=== PATIENT | female | born 1980 | race Two or more races ===

== ENCOUNTER 2018-08-15 23:16 | Emergency (ER) | payer OTHER ==
[2018-08-16] MEDS ORDERED: KETOROLAC TROMETHAMINE 60 MG/2 ML SDV IM ONE (01:43)
[2018-08-16] MEDS ORDERED: LIDOCAINE 5% (700 MG) TRANSDERMAL ADH..PATCH TP ONE (01:43)
[2018-08-16] MEDS ORDERED: MORPHINE SULFATE 10 MG/ML INJ IV ONE (03:06)
[2018-08-16] MEDS ORDERED: DIAZEPAM INJ 10 MG/2 ML DISP.SYRIN IV ONE (03:07)
--- NOTE | 2018-08-16 03:48 | RADIOLOGY REPORT (SQ) ---
EXAM DESCRIPTION: [facility]: CT LUMBAR SPINE WITHOUT IV CONTRAST CLINICAL HISTORY: 38 years Female; Lumbar pain with radiation down right leg TECHNIQUE: Noncontrast lumbar spine CT with sagittal and coronal reconstructions. All CT scans at this facility use dose modulation, iterative reconstruction, and/or weight based dosing when appropriate to reduce radiation dose to as low as reasonably achievable. COMPARISON: None. FINDINGS: Alignment is anatomic. L4-L5: Disc bulging with right foraminal component abuts the right L4 root as it exits the foramen. L5-S1: Disc bulging, potentially affecting the S1 roots. There is no acute fracture. Vertebral heights are preserved. No epidural hematoma. IMPRESSION: 1. No acute fracture or subluxation of the lumbar spine. 2. Right foraminal disc bulging at L4-L5 and broad posterior disc bulging at L5-S1, potentially affecting right L4 and/or bilateral S1 roots. MRI of the lumbar spine without contrast would provide better evaluation.
--- NOTE | 2018-08-16 04:40 | ER Document Report ---
ED General - General Mode of Arrival: Ambulatory Information source: Patient TRAVEL OUTSIDE OF THE [place] IN LAST 30 DAYS: No - General Chief Complaint: Ankle Pain Stated Complaint: RIGHT LEG AND ANKLE PAIN Time Seen by Provider: 08/16/18 01:43 Primary Care Provider: EAN POZO MD [Primary Care Provider] - Follow up as needed Notes: Patient is an otherwise healthy 38-year-old female presented to the emergency department with 6-month history of low back pain with radiation down into her right buttocks and back of her right leg. Patient reports she believes this initially happened at work, states she has been seeing a chiropractor and states that they have diagnosed her with a bulging just based on plain x-ray films. Patient states she has not had a CT or MRI of the lumbar spine performed. Patient reports her symptoms have been worsening, states that occasionally her leg gives out on her and states that she has severe pain as well as tingling and weakness to the leg. She denies any numbness. She did walking to the emergency department with a steady gait today. Denies any recent illness or fever. Denies any loss of bowel or bladder, denies any urinary retention or saddle anesthesia. (JESSICA LESLIE) - Related Data Allergies/Adverse Reactions: No Known Allergies Allergy (Unverified 08/15/18 23:19) Past Medical History - General Information source: Patient - Social History Smoking Status: Never Smoker Chew tobacco use (# tins/day): No Frequency of alcohol use: None Family History: Reviewed & Not Pertinent Patient has suicidal ideation: No Patient has homicidal ideation: No - Medical History Medical History: Negative Renal/ Medical History: Denies: Hx Peritoneal Dialysis Surgical Hx: Negative - Immunizations Immunizations up to date: Yes Review of Systems - Review of Systems Constitutional: No symptoms reported EENT: No symptoms reported Cardiovascular: No symptoms reported Respiratory: No symptoms reported Gastrointestinal: No symptoms reported Genitourinary: No symptoms reported Female Genitourinary: No symptoms reported Musculoskeletal: See HPI Skin: No symptoms reported Hematologic/Lymphatic: No symptoms reported Neurological/Psychological: No symptoms reported Physical Exam - Vital signs Vitals: Temp Pulse Resp BP Pulse Ox 98.7 F 83 16 128/81 H 100 08/15/18 23:37 08/15/18 23:37 08/15/18 23:37 08/15/18 23:37 08/15/18 23:37 - Notes Notes: PHYSICAL EXAMINATION: GENERAL: Well-appearing, well-nourished and in no acute distress. HEAD: Atraumatic, normocephalic. EYES: Pupils equal round and reactive to light, extraocular movements intact, conjunctiva are normal. ENT: Nares patent, oropharynx clear without exudates. Moist mucous membranes. NECK: Normal range of motion, supple without lymphadenopathy LUNGS: Breath sounds clear to auscultation bilaterally and equal. No wheezes rales or rhonchi. HEART: Regular rate and rhythm without murmurs ABDOMEN: Soft, nontender, nondistended abdomen. No guarding, no rebound. No masses appreciated. Female : deferred Musculoskeletal: Normal range of motion, no pitting or edema. No cyanosis. Vertebral tenderness noted in the lumbar area, no step-off or deformity noted. Significant tenderness to palpation to right lumbar paraspinous muscles extending down into the right buttocks. NEUROLOGICAL: Cranial nerves grossly intact. Normal speech. Normal sensory, motor exams PSYCH: Normal mood, normal affect. SKIN: Warm, Dry, normal turgor, no rashes or lesions noted. (JESSICA LESLIE) Course - Re-evaluation Re-evalutation: CT of the lumbar spine shows no acute fracture or subluxation. There is right- sided foraminal disc bulging at L4-L5 and broad posterior disc bulging at L5-S1. Potentially affecting right L4 and/or bilateral S1 roots. MRI recommended. This was discussed with the patient who would like to stay until MRI is available in the morning. Patient will be treated with additional pain medication. Patient was given morphine and Valium which did reduce her pain down to a 3/5 from a 5/5. Bedside handoff given to Alec MILLER. (JESSICA LESLIE) 08/16/18 10:49 Accepted patient from Jessica Leslie NP by the bedside. MRI lumbar spine without contrast complete results state L4-L5 shows a broad right lateral protrusion without exerting mass-effect on the L4 nerve root. L5-S1 there is a broad central protrusion that appears to exert mass-effect on the right S1 nerve root. At this time there are no red flags as patient is able to urinate, denies saddle paresthesia, denies fever, denies bowel incontinence. I have given her the MRI disc and a copy of the report. She is stable for discharge. (ERIKA COOMBS) - Vital Signs Vital signs: Temp Pulse Resp BP Pulse Ox 98.7 F 83 16 128/81 H 100 08/15/18 23:37 08/15/18 23:37 08/15/18 23:37 08/15/18 23:37 08/15/18 23:37 Discharge - Discharge Clinical Impression: Lower back pain Qualifiers: Chronicity: acute Back pain laterality: right Sciatica presence: with sciatica Sciatica laterality: sciatica of right side Qualified Code(s): M54.41 - Lumbago with sciatica, right side Right ankle pain Qualifiers: Chronicity: acute Qualified Code(s): M25.571 - Pain in right ankle and joints of right foot Condition: Good Disposition: HOME, SELF-CARE Additional Instructions: You were seen in the emergency department today for right ankle pain and right lower back pain. An MRI was done which did show that you do have bulging disks at L4-L5 and L5-S1. There were no red flags on physical exam or any symptoms that you explained so you are safe to go home. I have given you a short course of pain medication to help bridge you until you can see her primary doctor. I have also given you a disc of the MRI with the written report. Please take this to your primary doctor so you can get follow-up care. If you do develop fever, urinary retention, bowel incontinence, paralysis or worsening numbness and paresthesias in either of your legs, numbness in your "sit bones", please immediately return to the emergency department as this is a sign of a serious spinal cord injury Referrals: EAN POZO MD [Primary Care Provider] - Follow up as needed
[2018-08-16] MEDS ORDERED: DIAZEPAM 5 MG TABLET PO ONE (06:49)
[2018-08-16] MEDS ORDERED: OXYCODONE-ACETAMINOPHEN 5-325 MG TABLET PO ONE (06:49)
--- NOTE | 2018-08-16 08:48 | RADIOLOGY REPORT (SQ) ---
EXAM DESCRIPTION: MRI LUMBAR SPINE WITHOUT COMPLETED DATE/TIME: 08/16/2018 8:29 am REASON FOR STUDY: lumbar back pain, right leg numbness, tingling COMPARISON: Lumbar spine from earlier on same date. TECHNIQUE: Sagittal and Axial imaging includes T1, T2, STIR and gradient echo sequences. Coronal T2/ HASTE imaging. LIMITATIONS: None. FINDINGS: VISUALIZED UPPER ABDOMEN: Limited evaluation. No acute or suspicious findings suggested. SEGMENTATION: No transitional anatomy. The lowest well-developed disc space is labeled L5-S1. ALIGNMENT: Anatomic. VERTEBRAE: Intact. BONE MARROW: Normal. No marrow replacement or reactive changes. DISC SIGNAL: Mild signal loss at the L4-5 disc. Signal loss and disc hernia at L5-S1, see individual levels below. POSTERIOR ELEMENTS: Generally intact. No pars defect evident. HARDWARE: None in the spine. CORD AND CONUS: Normal in size and signal intensity. Conus at the appropriate level. SOFT TISSUES: No aortic aneurysm seen. No bulky retroperitoneal adenopathy or mass. No paraspinal mas s or fluid. L1-L2: No significant spinal stenosis or exit foraminal stenosis. L2-L3: No significant spinal stenosis or exit foraminal stenosis. L3-L4: No significant spinal stenosis or exit foraminal stenosis. L4-L5: Broad right lateral protrusion contacts but does not appear to exert mass effect on the L4 ner ve root. Mild facet overgrowth. No significant central narrowing. L5-S1: Broad central protrusion contacts the left S1 nerve root and appears to exert mass effect on t he right S1 nerve root particularly. Patent neural foramina. LOWER THORACIC: Incompletely imaged. No stenosis seen. SACRUM: Visualized upper sacrum intact. OTHER: No other significant findings. IMPRESSION: 1. L4-5 and L5-S1 disc hernias as above. TECHNICAL DOCUMENTATION: JOB ID: [id number] [employer]- All Rights Reserved Reading location - IP/workstation name: [email or web address]
[2018-08-16 11:36] VITALS: BP 126/86
== END 2018-08-16 11:35 | disposition home or self-care (01) ==
LOC: ER 23:16
DX: M54.41 Lumbago with sciatica, right side (principal); M25.571 Pain in right ankle and joints of right foot
CPT/HCPCS: 99283; 96372; 96374; 96375; 72148; 72131; J3360; J1885; J2270

== ENCOUNTER 2018-08-22 16:54 | Emergency (ER) | payer OTHER ==
[2018-08-22] MEDS ORDERED: HYDROMORPHONE HCL INJ/PF 2 MG/ML AMPULE IV PRN (18:53)
[2018-08-22] MEDS ORDERED: KETOROLAC TROMETHAMINE INJ/PF 30 MG/1 ML SDV IV ONE (18:53)
[2018-08-22] MEDS ORDERED: LIDOCAINE 5% (700 MG) TRANSDERMAL ADH..PATCH TP ONE (18:53)
--- NOTE | 2018-08-22 18:54 | ER Document Report ---
ED General - General Chief Complaint: Back Pain Stated Complaint: BACK AND RIGHT LEG PAIN Time Seen by Provider: 08/22/18 18:38 Primary Care Provider: EAN POZO MD [Primary Care Provider] - Follow up as needed Notes: Patient is a 38-year-old female with a past medical history of chronic low back pain, currently follows in pain management, presents from work with acute on chronic low back pain. The patient does have chronic low back pain, takes morphine and naproxen on a daily basis for control. States that she was standing at work for prolonged period of time and began to have progression of her low back pain which she describes as a severe, throbbing, aching pain to her low back that shoots down her bilateral extremities particular towards the right. She reports standing or bending over worsens the pain. She did receive fentanyl by EMS with some mild improvement of her pain. Was seen in the emergency department 1 week ago for similar symptoms and had an MRI of her low back at that time which did not show any critical findings that showed multiple herniated disks. Has not yet followed up with her primary doctor regarding those MRI findings. She denies any bowel or bladder incontinence, urinary loss of sensation, inability to ambulate, or focal weakness. TRAVEL OUTSIDE OF THE [place] IN LAST 30 DAYS: No - Related Data Allergies/Adverse Reactions: No Known Allergies Allergy (Unverified 08/15/18 23:19) Past Medical History - General Information source: Patient - Social History Smoking Status: Never Smoker Frequency of alcohol use: None Drug Abuse: None Lives with: Friend Family History: Reviewed & Not Pertinent Patient has suicidal ideation: No Patient has homicidal ideation: No Renal/ Medical History: Denies: Hx Peritoneal Dialysis - Immunizations Immunizations up to date: Yes Review of Systems - Review of Systems Notes: Constitutional: Negative for fever. HENT: Negative for sore throat. Eyes: Negative for visual changes. Cardiovascular: Negative for chest pain. Respiratory: Negative for shortness of breath. Gastrointestinal: Negative for abdominal pain, vomiting or diarrhea. Genitourinary: Negative for dysuria. Musculoskeletal: Positive for low back pain Skin: Negative for rash. Neurological: Negative for headaches, weakness or numbness. 10 point ROS negative except as marked above and in HPI. Physical Exam - Vital signs Vitals: Temp Pulse Resp BP Pulse Ox 97.8 F 95 18 141/82 H 100 08/22/18 17:00 08/22/18 17:00 08/22/18 17:00 08/22/18 17:00 08/22/18 17:00 Interpretation: Hypertensive Notes: PHYSICAL EXAMINATION: GENERAL: Appears uncomfortable, moving around rapidly in bed HEAD: Atraumatic, normocephalic. EYES: Pupils equal round and reactive to light, extraocular movements intact, sclera anicteric, conjunctiva are normal. ENT: nares patent, oropharynx clear without exudates. Moist mucous membranes. NECK: Normal range of motion, supple without lymphadenopathy LUNGS: Breath sounds clear to auscultation bilaterally and equal. No wheezes rales or rhonchi. HEART: Regular rate and rhythm without murmurs ABDOMEN: Soft, nontender, normoactive bowel sounds. No guarding, no rebound. No masses appreciated. EXTREMITIES: Normal range of motion, no pitting or edema. No cyanosis. Back: No midline spinal tenderness, step-offs or deformities NEUROLOGICAL: 5 out of 5 strength both distally and proximally bilateral lower extremities. 2+ patellar reflexes bilaterally. No clonus. Sensation grossly intact in the bilateral lower extremities. Patient is able to ambulate without difficulty. PSYCH: Anxious, tearful SKIN: Warm, Dry, normal turgor, no rashes or lesions noted. Course - Re-evaluation Re-evalutation: 08/22/18 18:54 Presentation of a well appearing patient complaining of acute on chronic back pain. No rapid progression of symptoms, systemic symptoms including fevers, chills, weight loss, history of recent bacterial infection, bilateral symptoms, numbness, weakness, difficulty walking, urinary retention or bowel incontinence, personal history of cancer, immunosuppression, diabetes, known AAA, or history of IV drug use. Exam is without point tenderness over vertebral bodies, pulsatile abdominal mass, and patient has symmetric and intact lower extremity strength, sensation, and reflexes without clonus. 2+ symmetric medial malleolar and dorsalis pedis pulses. Patient had an MRI of her lumbar spine 1 week ago that showed bulging disks at multiple levels without any cord compression Based on history and physical, I have a very low suspicion of a concerning etiology of pain including epidural compression syndrome, spinal infection, transverse myelitis, malignancy, abdominal aortic aneurysm, renal colic, acute lower extremity claudication, neurogenic claudication, ankylosing spondylitis, or other intra-abdominal process. I do not believe repeat MRI imaging is appropriate at this point as imaging was completed less than 1 week ago for similar presentation. Patient's friend at the bedside does relate that the patient has not followed instructions from previous discharge and continues to physically exert herself regularly and is not taking rest as appropriate. Will provide analgesia and reassess the patient. - Vital Signs Vital signs: Temp Pulse Resp BP Pulse Ox 97.8 F 95 18 141/82 H 100 08/22/18 17:00 08/22/18 17:00 08/22/18 17:00 08/22/18 17:08/22/18 17:00 Discharge - Discharge Clinical Impression: Acute exacerbation of chronic low back pain Condition: Good Disposition: HOME, SELF-CARE Additional Instructions: You have been seen in the Emergency Department (ED) today for back pain. Your workup and exam have not shown any acute abnormalities and you are likely having ongoing pain related to herniated disks that were identified on the MRI from earlier this month. 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 You should also purchase a local lidocaine cream such as "aspercreme with lidocaine" and use per bottle instructions to the affected area. Apply heat to the area as often as you are able. Continue to keep active and avoid prolonged periods of bed rest. Please follow up with your doctor as soon as possible regarding today's ED visit and your back pain. Return to the ED for worsening back pain, fever, weakness or numbness of either leg, or if you develop either (1) an inability to urinate or have bowel movements, or (2) loss of your ability to control your bathroom functions (if you start having "accidents"), or if you develop other new symptoms that concern you.concern you. Referrals: EAN POZO MD [Primary Care Provider] - Follow up as needed
[2018-08-22 20:09] VITALS: BP 113/63
[2018-08-22] MEDS ORDERED: ONDANSETRON HCL INJ/PF 4 MG/2 ML SDV IV ONE (20:10)
== END 2018-08-22 20:39 | disposition home or self-care (01) ==
LOC: ER 16:54
DX: G89.29 Other chronic pain (principal); M54.5 Low back pain
CPT/HCPCS: 99283; 96374; 96375; J1885; J1170; J2405

== ENCOUNTER 2018-08-24 15:20 | Emergency (ER) | payer OTHER ==
[2018-08-24] MEDS ORDERED: OXYCODONE-ACETAMINOPHEN 5-325 MG TABLET PO ONE (16:22)
[2018-08-24] MEDS ORDERED: KETOROLAC TROMETHAMINE 60 MG/2 ML SDV IM ONE (16:22)
--- NOTE | 2018-08-24 16:24 | ER Document Report ---
ED Medical Screen (RME) - General Chief Complaint: Urinary Retention Stated Complaint: BACK PAIN Time Seen by Provider: 08/24/18 16:21 Primary Care Provider: EAN POZO MD [Primary Care Provider] - Follow up as needed Notes: 38-year-old female coming in today with back pain that radiates down the right leg. Been seen here before. Had an MRI. Was prescribed morphine for pain. She has not seen a back specialist. Pain is worse now. Now having difficulty moving her bowels. A bowel movement for a week. Also feels the urge to urinate and the urinate. She does not have any overflow incontinence. She has not lost control of her bowels. No fevers or chills or flank pain. No nausea or vomiting. I have treated and performed a rapid initial assessment of this patient. A comprehensive ED assessment and evaluation of the patient, analysis of test results and completion of medical decision making process will be conducted by additional ED providers. PHYSICAL EXAMINATION: GENERAL: Walks with a limp favoring the right lower extremity. Appears to be in discomfort. ABDOMEN: Soft, nondistended abdomen. No guarding, no rebound. Normal bowel sounds present. No CVA tenderness bilaterally. + mild epigastric tenderness (cannot elicit thorough abd exam w/o table, however). Extremities: No cyanosis, clubbing, or edema b/l. NEUROLOGICAL: Normal speech, normal gait. PSYCH: Normal mood, normal affect. TRAVEL OUTSIDE OF THE [place] IN LAST 30 DAYS: No - Related Data Allergies/Adverse Reactions: No Known Allergies Allergy (Verified 08/24/18 15:22) Past Medical History - Social History Chew tobacco use (# tins/day): No Drug Abuse: None Renal/ Medical History: Denies: Hx Peritoneal Dialysis - Immunizations Immunizations up to date: Yes Physical Exam - Vital signs Vitals: Temp Pulse Resp BP Pulse Ox 98.1 F 85 18 149/83 H 98 08/24/18 15:22 08/24/18 15:22 08/24/18 15:22 08/24/18 15:22 08/24/18 15:22 Course - Vital Signs Vital signs: Temp Pulse Resp BP Pulse Ox 98.1 F 85 18 149/83 H 98 08/24/18 15:22 08/24/18 15:22 08/24/18 15:22 08/24/18 15:22 08/24/18 15:22 Doctor's Discharge - Discharge Referrals: EAN POZO MD [Primary Care Provider] - Follow up as needed
[2018-08-24 17:09] LABS: APPEARANCE,URINE CLEAR; BILIRUBIN,URINE NEGATIVE (NEGATIVE); COLOR,URINE YELLOW; GLUCOSE, URINE NEGATIVE (NEGATIVE); KETONES,URINE TRACE mg/dL (NEGATIVE); LEUKOCYTE ESTERASE,URINE NEGATIVE (NEGATIVE); NITRITE,URINE NEGATIVE (NEGATIVE); PROTEIN,URINE NEGATIVE (NEGATIVE); UROBILINOGEN,URINE NEGATIVE mg/dL (<2.0)
[2018-08-24] MEDS ORDERED: PREDNISONE 20 MG TABLET PO ONE (22:57)
--- NOTE | 2018-08-24 22:59 | ER Document Report ---
ED General - General Chief Complaint: Urinary Retention Stated Complaint: BACK PAIN Time Seen by Provider: 08/24/18 16:21 Primary Care Provider: KRISTEN PICKERING MD [NO LOCAL MD] - Follow up in 3-5 days (call office in the am to make a close follow up appointment.) Notes: Patient is a 38-year-old female who has been seen here now 3 times in the last 10 days due to chronic back pain. She is on the first day that she was seen she had an MRI which showed that she had a right-sided S1 nerve root compression from a herniated disc at the L5-S1 region. She came back few days later and was reevaluated. She went to urgent care at today for referral to a back surgeon but they told her to come to the ER because she had been complaining of some urinary tension. Said urinary tension is been ongoing for several days. She denies any fevers. No vomiting. No new injuries to her back. No weakness or numbness into the legs. No numbness in the genital region. She denies any difficulty controlling her bowel movements. She denies any loss of bowel control whatsoever. She says she is able to urinate but she feels that she has to push harder than normally. No burning when she urinates. No other complaints at this time. TRAVEL OUTSIDE OF THE [place] IN LAST 30 DAYS: No - Related Data Allergies/Adverse Reactions: No Known Allergies Allergy (Verified 08/24/18 15:22) Past Medical History - Social History Smoking Status: Unknown if Ever Smoked Chew tobacco use (# tins/day): No Frequency of alcohol use: None Drug Abuse: None Family History: Reviewed & Not Pertinent Patient has suicidal ideation: No Patient has homicidal ideation: No Renal/ Medical History: Denies: Hx Peritoneal Dialysis - Immunizations Immunizations up to date: Yes Review of Systems - Review of Systems Notes: My Normal Review Basic REVIEW OF SYSTEMS: CONSTITUTIONAL : Denies fever, chills, or sweats. Denies recent illness. RESPIRATORY: Denies cough, cold, or chest congestion. Denies shortness of breath, difficulty breathing, or wheezing. GASTROINTESTINAL: Denies abdominal pain. Denies nausea, vomiting, or diarrhea. GENITOURINARY: Sensation of difficulty emptying bladder. MUSCULOSKELETAL: Pain in the right side low back rating down the back of right leg. SKIN: Denies rash or skin lesions. NEUROLOGICAL: Denies altered mental status or loss of consciousness. Denies headache. Denies weakness or paralysis or loss of use of either side. Denies problems with gait or speech. Denies sensory or motor loss. ALL OTHER SYSTEMS REVIEWED AND NEGATIVE. Physical Exam - Vital signs Vitals: Temp Pulse Resp BP Pulse Ox 98.1 F 85 18 149/83 H 98 08/24/18 15:22 08/24/18 15:22 08/24/18 15:22 08/24/18 15:22 08/24/18 15:22 - Notes Notes: General Appearance: Well nourished, alert, cooperative, no acute distress, mild obvious discomfort. Vitals: reviewed, See vital signs table. Back: Some pain to palpation over the right lower back near the SI junction. Some pain to palpation of the right piriformis muscle. Extremities: strength 5/5 in all extremities, good pulses in all extremities, no swelling or tenderness in the extremities, no edema. She is able to stand and walk without any difficulties. No foot drop. She has good strength with plantar dorsiflexion against resistance on both feet. Some pain with straight leg raise of the right leg. Pain goes from the right lower back down to just above the right knee. Skin: warm, dry, appropriate color, no rash Neuro: speech clear, oriented x 3, normal affect, responds appropriately to questions. Course - Re-evaluation Re-evalutation: 08/24/18 23:02 Patient looks very well on exam. She is able to stand and walk without any difficulty. She has no foot drop. Her patellar reflexes are normal. She has good distal sensation throughout her extremities. She denies any numbness or tingling in her genital region or around her rectum. She denies absolutely any loss of bowel control. Her only concerning symptom is that she does have sensation of some urinary tension therefore I did have her urinate and then I performed ultrasound immediately after she urinated. She had 99 mL's of urine left in her bladder after urination based on my bedside ultrasound. I talked her at length about this. I informed her that currently she does not have findings that are consistent with need for acute surgical intervention however I still feel that it is appropriate to refer her to a neurosurgeon to be evaluated with the next 1 to 2 weeks. I informed her that she needs a very low threshold to return to the ER if she has worsening of her sensation of urinary retention, any weakness or numbness into her legs, loss of bowel control, numbness in her genital region, or if she feels that she is worsening any way. Patient is very agreeable to plan will be discharged home. Dictation of this chart was performed using voice recognition software; therefore, there may be some unintended grammatical errors. - Vital Signs Vital signs: Temp Pulse Resp BP Pulse Ox 98.4 F 68 14 142/75 H 98 08/24/18 23:08 08/24/18 23:08 08/24/18 23:08 08/24/18 23:08 08/24/18 15:22 - Laboratory Laboratory results interpreted by me: 08/24/18 16:45 Urine Ketones TRACE H Discharge - Discharge Clinical Impression: Acute exacerbation of chronic low back pain Condition: Good Disposition: HOME, SELF-CARE Additional Instructions: Your previous MRI does show that you do have a lumbar disc herniation at L5-S1 that pushes on your right S1 nerve root. This likely is causing your symptoms that you are experiencing of pain going down the right leg. You are experiencing a sensation of difficulty to urinate however you are emptying your bladder well based on the ultrasound that I performed today after you used the bathroom. Even though you do not meet criteria for emergent surgical intervention at this time I still want to have a low threshold to return to the ER if you develop any weakness or numbness into your legs, numbness in your vaginal region, loss of control of your bowel function, or feel that your ability to urinate is worsening in any way. I referred you to Dr. Pickering. He is a neurosurgeon in [place]. Please call his office tomorrow morning to make a close follow-up appointment. We will place you on steroids for a few days. Do not take other NSAID medicaitons such as Aspirin, Motrin, Ibuprofen, Aleve, or Advil when taking Toradol. It is okay to take Tylenol. Sometimes the medications I am placing you on can cause irritation to the stomach. Please take the medicine with food and stop the medications if you develop any abdominal pain. Prescriptions: Ketorolac Tromethamine [Toradol 10 mg Tablet] 10 mg PO Q8HP PRN #15 tablet PRN Reason: RX: Prednisone [Deltasone 20 mg Tablet] 2 tab PO DAILY 3 Days tablet Referrals: KRISTEN PICKERING MD [NO LOCAL MD] - Follow up in 3-5 days (call office in the am to make a close follow up appointment.)
[2018-08-24 23:10] VITALS: BP 142/75
== END 2018-08-24 23:08 | disposition home or self-care (01) ==
LOC: ER 15:20
DX: M54.5 Low back pain (principal); G89.29 Other chronic pain; R33.9 Retention of urine, unspecified; M54.9 Dorsalgia, unspecified; Z98.890 Other specified postprocedural states
CPT/HCPCS: 99283; 96372; 81025; 81001; J1885; J7512

== ENCOUNTER → 2018-12-10 | Outpatient (CLI) | payer OTHER ==
--- NOTE | 2018-12-10 12:33 | RADIOLOGY REPORT (SQ) ---
EXAM DESCRIPTION: MRI LUMBAR SPINE COMBO COMPLETED DATE/TIME: 12/10/2018 11:03 am REASON FOR STUDY: SCIATICA, RIGHT SIDE M54.31 SCIATICA, RIGHT SIDE COMPARISON: CT lumbar spine 08/16/2018 MRI lumbar spine 08/16/2018 TECHNIQUE: Sagittal and Axial imaging includes T1, T1 post gadolinium, T2, STIR and gradient echo se quences. Coronal T2/HASTE imaging. CONTRAST TYPE AND DOSE: 10 mL Prohance. RENAL FUNCTION: Not indicated. ACR Type II contrast agent associated with few, if any, unconfounded cases of NSF LIMITATIONS: None. FINDINGS: On the right side, patient is post laminectomy and partial facetectomy at the L5-S1 level. A moderate size recurrent or residual right paracentral disc herniation is present with extruded di sc material flattening the thecal sac at the takeoff of the proximal right S1 nerve root. On the pos t contrasted images, a rind of enhancing granulation tissue encases the extruded disc fragment best s hown on sagittal image 5 and axial image 29. Elsewhere at L5-S1, there is mild central canal narrowing from recurrent or residual disc herniation. No exit L5 nerve root impingement. No impingement upon the proximal left S1 nerve root as it exits the thecal sac. VISUALIZED UPPER ABDOMEN: Limited evaluation. No acute or suspicious findings suggested. SEGMENTATION: No transitional anatomy. The lowest well-developed disc space is labeled L5-S1. ALIGNMENT: Anatomic. VERTEBRAE: Intact. No fractures. BONE MARROW: Normal. No marrow replacement or reactive changes. DISC SIGNAL: Decreased T2 weighted intervertebral disc signal at L5-S1 POSTERIOR ELEMENTS: Right L5 in laminectomy and partial facetectomy HARDWARE: None in the spine. CORD AND CONUS: Normal in size and signal intensity. Conus at the T12-L1 level. SOFT TISSUES: No aortic aneurysm seen. No bulky retroperitoneal adenopathy or mass. No paraspinal mas s or fluid. L1-L2: No significant spinal stenosis or exit foraminal stenosis. L2-L3: No significant spinal stenosis or exit foraminal stenosis. Mild bilateral facet hypertrophy. L3-L4: No significant spinal stenosis or exit foraminal stenosis. Moderate bilateral facet hypertrop hy. L4-L5: Borderline central canal narrowing results from broad diffuse posterior disc bulging and mode rate bilateral facet and ligament hypertrophy. Mild bilateral inferior foraminal narrowing without e xiting L4 nerve root impingement. L5-S1: On the right side, patient is post laminectomy and partial facetectomy at the L5-S1 level. A m oderate size recurrent or residual right paracentral disc herniation is present with extruded disc ma terial flattening the thecal sac at the takeoff of the proximal right S1 nerve root. On the post cont rasted images, a rind of enhancing granulation tissue encases the extruded disc fragment best shown o n sagittal image 5 and axial image 29. Elsewhere at L5-S1, there is mild central canal narrowing from recurrent or residual disc herniation. No exit L5 nerve root impingement. No impingement upon the proximal left S1 nerve root as it exits the thecal sac. LOWER THORACIC: Incompletely imaged. No stenosis seen. SACRUM: Visualized upper sacrum intact. OTHER: No other significant findings. IMPRESSION: Recurrent disc herniation on the right at L5-S1. This flattens the thecal sac at the ta keoff of the right proximal S1 nerve root TECHNICAL DOCUMENTATION: JOB ID: [id number] [employer]- All Rights Reserved Reading location - IP/workstation name: [email or web address]
== END ==
LOC: RAD 10:05
PROVIDERS: ATTEND Orthopaedic Surgery
DX: M51.17 Intervertebral disc disorders with radiculopathy, lumbosacral region (principal)
CPT/HCPCS: 72158; A9576